=== PATIENT | female | born 1995 | race Hispanic/Latino ===

== ENCOUNTER 2021-10-18 14:34 | Emergency (ER) | payer OTHER, SELFPAY ==
[2021-10-18 14:53] VITALS: BP 106/67; PULSE 72; RESP 16; TEMP 37.4; O2SAT 99
--- NOTE | 2021-10-18 16:11 | ED.SKABFB ---
HPI - Skin/Abscess/Foreign Bdy General Chief complaint: Skin/Abscess/Foreign Body Stated complaint: rash Time Seen by Provider: 10/18/21 16:14 Source: patient, RN notes reviewed and old records reviewed Mode of arrival: ambulatory Limitations: no limitations History of Present Illness HPI narrative: 26 [facility] old [facility] she states that she has had since he went to [facility] in [place] on 10/12/2021. Patient reports that she has been itchy for one week duration. Patient reports no new medication, foods, no new lotion body soap, or any laundry tissue. Patient states that she has taken Benadryl and used anti- itch lotion to her skin. Patient reports that rash comes and goes, reports no rash at this time. MD complaint: rash and other (pruritis) Onset (ago): day(s) (6) Treatments prior to arrival: other (anti-itch location and benadryl po) Related Data Allergies Allergy/AdvReac Type Severity Reaction Status Date / Time No Known Allergies Allergy Mild Verified 10/18/21 15:43 Review of Systems Review of Systems: CONSTITUTIONAL: Denies fever, chills, or sweats. EYES: Denies visual changes, redness, or discharge. ENT: Denies rhinorrhea, congestion, sore throat, or otalgia. CARDIOVASCULAR: Denies chest pain, palpitations, or edema. RESPIRATORY: Denies cough or dyspnea. GASTROINTESTINAL: Denies abdominal pain, nausea, vomiting, or diarrhea. GENITOURINARY: Denies dysuria or hematuria. SKIN: Positive for generalized rash or itching. MUSCULOSKELETAL: Denies back pain, joint pain, or myalgia. NEUROLOGIC: Denies headache, numbness, or weakness. PSYCHIATRIC: Denies anxiety or depression. All systems reviewed & are unremarkable except as noted in HPI and below PMFSH Past Medical History Medical History No significant past medical history Surgical History Surgical History No history of previous surgery Social History Social History (Updated 10/18/21 @ 17:48 by Janis Hernandez NP) Smoking status: Never smoker Alcohol intake: current Alcohol use details: social Substance use type: does not use Living arrangements: with family Gender identity (if verbalized by the patient): Female Comments At time of signature, agree with nursing past medical, surgical, social and family history. There is no relevant family history pertinent to the presenting complaint Exam Narrative: GENERAL: Well-appearing, well-nourished, and in no acute distress. HEAD: Normocephalic, atraumatic. EYES: PERRLA and EOMI. ENT: Nares clear, no rhinorrhea or epistaxis. Mucous membranes moist.TMs normal, throat with some redness, no pain, no lesions ore exudates, some tonsil swelling NECK: Supple.no lymphadenopathy CHEST: Clear to auscultation. No respiratory distress.SAO2 99% on room air, no tachypnea HEART: Regular rate and rhythm. No murmur heard. Normal peripheral pulses. ABDOMEN: Soft, nontender, nondistended, normal active bowel sounds. EXTREMITIES: Normal range of motion. No edema. SKIN: Warm, dry, no rash noted but continued complaints of itching since with no resolution with OTC Benadryl and anti-itch lotion. NEURO: No focal deficits. Alert and oriented x3. Course Course Level of Care: Express Care Visit Vital Signs Vital signs: Vital Signs Temperature 37.4 C 10/18/21 14:53 Pulse Rate 72 10/18/21 14:53 Respiratory Rate 16 10/18/21 14:53 Blood Pressure 106/67 10/18/21 14:53 Pulse Oximetry 99 10/18/21 14:53 Oxygen Delivery Room Air 10/18/21 14:53 Temperature 37.4 C 10/18/21 14:53 Pulse Rate 72 10/18/21 14:53 Respiratory Rate 16 10/18/21 14:53 Blood Pressure 106/67 10/18/21 14:53 Pulse Oximetry 99 10/18/21 14:53 Oxygen Delivery Room Air 10/18/21 14:53 MDM - Skin/Abscess/Foreign Bdy Differential Diagnosis Differential diagnosis: Likely abscess of
== END 2021-10-18 16:39 | disposition home or self-care (01) ==
PROVIDERS: Emergency Provider Registered Nurse
DX: L25.9 Unspecified contact dermatitis, unspecified cause (principal)
CPT/HCPCS: 99213; G0463

== ENCOUNTER 2022-04-12 11:16 | Emergency (ER) | payer OTHER, SELFPAY ==
[2022-04-12 11:37] VITALS: BP 102/60; PULSE 101; RESP 15; TEMP 36.6; O2SAT 98
[2022-04-12] MEDS: SODIUM CHLORIDE 0.9% IV 1,000 ML 999 ML IV CONT (15:26)
[2022-04-12] MEDS: diphenhydrAMINE HCl INJ 50 MG/ML VIAL 25 MG IV PUSH (15:27)
[2022-04-12] MEDS: METOCLOPRAMIDE HCL INJ 10 MG/2 ML VIAL IV PUSH (15:27)
[2022-04-12] MEDS: KETOROLAC 30 MG/ML VIAL (*BKC) IV PUSH (15:28)
[2022-04-12 16:21] LABS: Strep Group A RT-PCR DETECTED (Negative)
[2022-04-12 16:38] LABS: Influenza A QL RT-PCR Negative (Negative); Influenza B QL RT-PCR Negative (Negative); SARS-CoV-2 RNA PCR Negative
--- NOTE | 2022-04-12 16:55 | ED.HA ---
HPI - Headache General Chief Complaint: Headache Stated Complaint: migraine x 1 week Time Seen by Provider: 04/12/22 14:27 History of Present Illness HPI Narrative: Patient is a 27-year-old female who presents ER with headache. Began about a week ago. Aching and posterior on the right side. It is now generalized and throbbing. Endorses photophobia and phonophobia. Has history of migraine in the past. Feels similar. Patient also reports that she has subjective fever yesterday which felt hot and flushed. She is got sore throat but no difficulty breathing or swallowing. No cough. Reports she has a child who is sick couple days ago and had a 24-hour fever as well. Related Data Allergies Allergy/AdvReac Type Severity Reaction Status Date / Time No Known Allergies Allergy Mild Verified 10/18/21 15:43 Review of Systems Review of Systems: All systems reviewed & are unremarkable except as noted in HPI and below Constitutional: Constitutional: Denies chills and Reports fever(s) (Subjective) Eyes: Eyes: Reports photophobia ENT: Denies nasal congestion and Reports sore throat Neurologic: Reports headache(s), Denies focal weakness and Denies numbness PMFSH Past Medical History Medical History No significant past medical history Surgical History Surgical History No history of previous surgery Social History Social History (Updated 10/18/21 @ 17:48 by Janis Hernandez NP) Smoking status: Never smoker Alcohol intake: current Alcohol use details: social Substance use type: does not use Living arrangements: with family Gender identity (if verbalized by the patient): Female Exam Narrative: GENERAL: Well-appearing, well-nourished, and in no acute distress. HEAD: Normocephalic, atraumatic. EYES: PERRL and EOMI. ENT: Mucous membranes moist. Tonsillar hypertrophy with exudate. NECK: Mild lymphadenopathy bilateral anterior cervical chain. EXTREMITIES: Normal range of motion. No edema. SKIN: Warm, dry, no rash. NEURO: Alert and oriented x3. PSYCH: Normal mood and affect. Course Course Emergency Course: Patient feels markedly better after migraine cocktail. Patient also has strep throat. Discharged on amoxicillin. Vital Signs Vital signs: Vital Signs Temperature 98 F 04/12/22 11:37 Pulse Rate 101 H 04/12/22 11:37 Respiratory Rate 15 04/12/22 11:37 Blood Pressure 102/60 04/12/22 11:37 Pulse Oximetry 98 04/12/22 11:37 Oxygen Delivery Room Air 04/12/22 11:37 Temperature 98 F 04/12/22 11:37 Pulse Rate 101 H 04/12/22 11:37 Respiratory Rate 15 04/12/22 11:37 Blood Pressure 102/60 04/12/22 11:37 Pulse Oximetry 98 04/12/22 11:37 Oxygen Delivery Room Air 04/12/22 11:37 MDM - Headache Lab Data Labs: Lab Results 04/12/22 04/12/22 Range/Units 15:47 15:47 Influenza A (RT-PCR) Negative (Negative) Influenza B (RT-PCR) Negative (Negative) SARS-CoV-2 RNA (RT-PCR) Negative Group A Strep (PCR) Detected A (Negative) Discharge Plan Discharge Clinical Impression: Strep throat, Headache Patient Disposition: Home, Self-Care Condition: Stable Instructions: Antibiotic Form, Strep Throat (ED), Acute Headache (ED) Additional Instructions: Return the ER if she has inability swallow, you cannot breathe, you have additional concerns. Prescriptions: New amoxicillin 500 mg tablet 500 mg PO Q12H Qty: 20 0RF No Action methylprednisolone [Medrol (Andrew)] 4 mg tablets,dose pack 4 mg PO QAM Qty: 21 0RF Rx Instructions: take per package instructions Follow-up/Referrals: Ignacio Ye MD [Physician] - 1 Week PHYSICIAN,SERVICE SUPPORT REPRESENTATIVE [Primary Care Provider] -
--- NOTE | 2022-04-12 16:55 | PC.NURSE ---
pt ambulatory to nurses station stating I am ready to go, i pulled my iv out, i want to leave. This rn asked pt to wait in her room and she would go ask the dr to print her discharge paperwork.
[2022-04-12 17:02] VITALS: PULSE 68; RESP 16; O2SAT 98
== END 2022-04-12 17:03 | disposition home or self-care (01) ==
PROVIDERS: Emergency Provider Emergency Medicine
DX: R51.9 Headache, unspecified (principal); J02.0 Streptococcal pharyngitis; Z20.822 Contact with and (suspected) exposure to COVID-19
CPT/HCPCS: 87636; 87651; 96361; 96374; 96375; 99284; J1200; J1885; J2765; J7030